=== PATIENT | female | born 1970 | race Two or more races ===

== ENCOUNTER 2018-04-14 08:23 | Emergency (ER) | payer OTHER ==
[2018-04-14 08:35] VITALS: BP 128/88; PULSE 70; TEMP 98.1; BMI 30.1
[2018-04-14] MEDS ORDERED: ONDANSETRON 4 MG/2 ML VIAL IVPUSH ONE (09:06)
[2018-04-14] MEDS ORDERED: SODIUM CHLORIDE 500 ML IV STA (09:07)
--- NOTE | 2018-04-14 09:23 | PDOC ---
History of Present Illness - General Chief Complaint: Pain, Acute Stated Complaint: ABD PAIN Time Seen by Provider: 04/14/18 09:00 Past History - Past Medical History Allergies/Adverse Reactions: Allergies Allergy/AdvReac Type Severity Reaction Status Date / Time acetaminophen Allergy Mild Rash Verified 04/14/18 08:36 [From Tylenol-Codeine] codeine phosphate Allergy Mild Rash Verified 04/14/18 08:36 [From Tylenol-Codeine] morphine Allergy Mild Vomiting Verified 04/14/18 08:36 ciprofloxacin [From Cipro] Allergy Verified 04/14/18 08:36 ciprofloxacin HCl Allergy Verified 04/14/18 08:36 [From Cipro] Penicillins Allergy Swelling Verified 04/14/18 08:36 Home Medications: Ambulatory Orders Hydrochlorothiazide [Hctz -] 12.5 mg PO DAILY 03/25/16 Olmesartan/Hydrochlorothiazide [Benicar Hct 40-12.5 mg Tablet] 12.5 mg PO DAILY 03/25/16 Omeprazole [Prilosec] 40 mg PO DAILY 03/25/16 Ketorolac Tromethamine [Toradol] 10 mg PO TID PRN #15 tablet 03/26/16 COPD: No HTN: Yes Other medical history: IBS - Surgical History Abdominal Surgery: Yes (HERNIA) Appendectomy: Yes (?) Cholecystectomy: Yes GI Surgery: Yes (GASTRIC SLEEVE SX 3 YRS AGO) - Immunization History Immunization Up to Date: Yes - Suicide/Smoking/Psychosocial Hx Smoking Status: No Smoking History: Never smoked Have you smoked in the past 12 months: No Number of Cigarettes Smoked Daily: 0 Hx Alcohol Use: No Drug/Substance Use Hx: No Substance Use Type: None *Physical Exam - Vital Signs Last Vital Signs Temp Pulse Resp BP Pulse Ox 98.1 F 70 18 128/88 100 04/14/18 08:30 04/14/18 08:30 04/14/18 08:30 04/14/18 08:30 04/14/18 08:30 Medical Decision Making - Medical Decision Making 04/14/18 09:56 Unable to locate patient in the emergency waiting area, bathroom several weeks. As per security patient was seen getting into a vehicle *DC/Admit/Observation/Transfer Diagnosis at time of Disposition: Abdominal pain - Discharge Dispostion Disposition: LEFT BEFORE [facility] - Referrals Referrals: Rober Macedo MD [Primary Care Provider] - - Patient Instructions - Post Discharge Activity
== END 2018-04-14 10:22 | disposition left against medical advice (07) ==
LOC: JER 08:23
DX: Z53.21 Procedure and treatment not carried out due to patient leaving prior to being seen by health care provider (principal)
CPT/HCPCS: 99281-25

== ENCOUNTER 2018-12-18 06:41 | Emergency (ER) | payer OTHER ==
[2018-12-18 07:13] VITALS: TEMP 98; BMI 26.5
--- NOTE | 2018-12-18 07:46 | PDOC ---
History of Present Illness - General Chief Complaint: Vomiting/Diarrhea Stated Complaint: DIARRHEA/VOMITING Time Seen by Provider: 12/18/18 07:42 History Source: Patient - History of Present Illness Timing/Duration: reports: constant, getting worse Quality: reports: moderate Past History - Past Medical History Allergies/Adverse Reactions: Allergies Allergy/AdvReac Type Severity Reaction Status Date / Time acetaminophen Allergy Mild Rash Verified 12/18/18 07:11 [From Tylenol-Codeine] codeine phosphate Allergy Mild Rash Verified 12/18/18 07:11 [From Tylenol-Codeine] morphine Allergy Mild Vomiting Verified 12/18/18 07:11 ciprofloxacin [From Cipro] Allergy Verified 12/18/18 07:11 ciprofloxacin HCl Allergy Verified 12/18/18 07:11 [From Cipro] Penicillins Allergy Swelling Verified 12/18/18 07:11 Home Medications: Ambulatory Orders Olmesartan/Hydrochlorothiazide [Benicar Hct 40-12.5 mg Tablet] 12.5 mg PO DAILY 03/25/16 Omeprazole [Prilosec] 40 mg PO DAILY 03/25/16 Ondansetron HCl [Zofran] 4 mg PO Q8H #12 tablet 12/18/18 COPD: No HTN: Yes - Surgical History Abdominal Surgery: Yes (HERNIA) Appendectomy: Yes (?) Cholecystectomy: Yes GI Surgery: Yes (GASTRIC SLEEVE SX 3 YRS AGO) - Immunization History Immunization Up to Date: Yes - Suicide/Smoking/Psychosocial Hx Smoking Status: No Smoking History: Never smoked Have you smoked in the past 12 months: No Number of Cigarettes Smoked Daily: 0 Hx Alcohol Use: No Drug/Substance Use Hx: No Substance Use Type: None Review of Systems - Review of Systems Constitutional: No: Chills, Fever ABD/GI: Yes: Diarrhea, Nausea, Poor Fluid Intake, Vomiting : No: Dysuria *Physical Exam - Vital Signs Last Vital Signs Temp Pulse Resp BP Pulse Ox 98 F 80 18 135/99 99 12/18/18 07:11 12/18/18 07:11 12/18/18 07:11 12/18/18 07:11 12/18/18 07:11 - Physical Exam General Appearance: Yes: Appropriately Dressed. No: Apparent Distress HEENT: positive: Normal Voice Neck: positive: Supple Respiratory/Chest: negative: Respiratory Distress Gastrointestinal/Abdominal: positive: Normal Bowel Sounds, Tender (to mid lower abd), Soft. negative: Distended, Guarding, Rebound Musculoskeletal: negative: CVA Tenderness Integumentary: positive: Dry, Warm Neurologic: positive: Fully Oriented, Alert, Normal Mood/Affect Moderate Sedation - Procedure Monitoring Vital Signs: Procedure Monitoring Vital Signs Temperature 98 F 12/18/18 07:11 Pulse Rate 80 12/18/18 07:11 Respiratory Rate 18 12/18/18 07:11 Blood Pressure 135/99 12/18/18 07:11 O2 Sat by Pulse Oximetry (%) 99 12/18/18 07:11 ED Treatment Course - LABORATORY CBC & Chemistry Diagram: 12/18/18 08:00 12/18/18 08:00 Medical Decision Making - Medical Decision Making 12/18/18 07:42 48-year-old female, history of IBS, endometriosis, umbilical hernia, s/p multiple abdominal surgeries including partial resection of pancreas (2/2 benign mass per pt, possible stent placement), hysterectomy, abdominal sleeve, abdominoplasty, here with nausea, vomiting, diarrhea and lower abdominal pain since yesterday. No bright red blood per rectum, fever or chills. Multiple family members with similar symptoms. No recent travel or antibiotic use See exam Possible gastroenteritis, r/o SBO Stable and in NAD w/ sig ttp to mid lower abdomen -pain control -antiemetic -IVF -labs -CT a/p w/ po contrast only as ?allergy to IV dye per pt 12/18/18 11:[address] unremarkable. UA w/ 3+ LE. No dysuria. Will hold off on abx and send ucx. Patient since improved with meds and able to porsche po. Will dc with supportive treatment for most likely viral gastroenteritis 12/18/18 11:41 *DC/Admit/Observation/Transfer Diagnosis at time of Disposition: Diarrhea Qualifiers: Diarrhea type: unspecified type Qualified Code(s): R19.7 - Diarrhea, unspecified Nausea and vomiting Qualifiers: Vomiting type: unspecified Vomiting Intractability: non-intractable Qualified Code(s): R11.2 - Nausea with vomiting, unspecified - Discharge Dispostion Disposition: HOME Condition at time of disposition: Improved - Prescriptions Prescriptions: Ondansetron HCl [Zofran] 4 mg PO Q8H #12 tablet - Referrals Referrals: Rober Macedo MD [Primary Care Provider] - - Patient Instructions Printed Discharge Instructions: Viral Gastroenteritis Additional Instructions: Your labs and CAT scan were here. Please rest, drink plenty of fluids and take Tylenol as needed for pain. We also sent prescription for Zofran. Please take as needed for nausea - Post Discharge Activity
[2018-12-18] MEDS ORDERED: ONDANSETRON 4 MG/2 ML VIAL IVPUSH ONE (07:48)
[2018-12-18] MEDS ORDERED: SODIUM CHLORIDE 1,000 ML IV STA (07:48)
[2018-12-18] MEDS ORDERED: ACETAMINOPHEN 1000 MG/100 ML VIAL (NON FORMULARY) IVPB ONE (07:49)
[2018-12-18] MEDS ORDERED: ONDANSETRON 4 MG/2 ML VIAL ONE (08:15)
[2018-12-18] MEDS ORDERED: ACETAMINOPHEN INJECTION 100 ML IVPB ONE (08:15)
--- NOTE | 2018-12-18 08:24 | PDOC ---
*Physical Exam - Vital Signs Last Vital Signs Temp Pulse Resp BP Pulse Ox 98 F 80 18 135/99 99 12/18/18 07:11 12/18/18 07:11 12/18/18 07:11 12/18/18 07:11 12/18/18 07:11 ED Treatment Course - LABORATORY CBC & Chemistry Diagram: 12/18/18 08:00 12/18/18 08:00 Medical Decision Making - Medical Decision Making 12/18/18 08:24 Pt seen by the Advanced Practice Provider under my direct supervision Ancillary studies reviewed I agree with plan as outlined by the Advanced Practice Provider FERMIN Peoples *DC/Admit/Observation/Transfer - Referrals Referrals: Rober Macedo MD [Primary Care Provider] - - Patient Instructions - Post Discharge Activity
[2018-12-18 08:40] LABS: BASO % 0.5 % (0-2.0); EOS % 1.8 % (0-4.5); HEMATOCRIT 43.3 % (32.4-45.2); HEMOGLOBIN 14.6 GM/dL (10.7-15.3); LYMPH % 20.1 % (8-40); MCH 27.9 pg (25.7-33.7); MCHC 33.6 g/dl (32.0-36.0); MEAN CELL VOLUME 83.1 fl (80-96); MEAN PLT VOLUME 8.8 fl (7.5-11.1); MONO % 4.5 % (3.8-10.2); NEUT % 73.1 % (42.8-82.8); PLATELET COUNT 274 K/MM3 (134-434); RBC 5.21 M/mm3 (3.60-5.2); RDW 14.6 % (11.6-15.6); WHITE BLOOD COUNT 6.5 K/mm3 (4.0-10.0)
[2018-12-18 09:01] LABS: URINE APPEARANCE SLCLOUDY; URINE BILIRUBIN NEGATIVE (<2.0 mg/dL); URINE COLOR YELLOW; URINE GLUCOSE (UA) NEGATIVE (NEGATIVE); URINE KETONE NEGATIVE (NEGATIVE); URINE LEUK ESTERASE 3+ (NEGATIVE); URINE NITRITE NEGATIVE (NEGATIVE); URINE PROTEIN NEGATIVE (NEGATIVE); URINE UROBILINOGEN NEGATIVE mg/dL (0.2-1.0)
[2018-12-18 09:06] LABS: ALBUMIN 4.1 g/dl (3.4-5.0); ALK PHOS 74 U/L (45-117); ANION GAP 8 MMOL/L (8-16); BILIRUBIN,TOTAL 0.4 mg/dL (0.2-1); BLOOD UREA NITROGEN 12 mg/dL (7-18); CALCIUM 9.2 mg/dL (8.5-10.1); CHLORIDE 107 mmol/L (98-107); CO2 26 mmol/L (21-32); CREATININE 0.6 mg/dL (0.55-1.3); GLUCOSE,RANDOM 118 mg/dL (74-106); LIPASE 88 U/L (73-393); POTASSIUM 4.3 mmol/L (3.5-5.1); SGOT/AST 23 U/L (15-37); SGPT/ALT 33 U/L (13-61); SODIUM 142 mmol/L (136-145); TOT PROT 7.8 g/dl (6.4-8.2)
[2018-12-18 10:31] LABS: EPI CELLS FEW /HPF (FEW); URINE BACTERIA RARE /hpf (NONE SEEN); URINE MUCUS MANY
[2018-12-18] MEDS ORDERED: KETOROLAC TROMETHAMINE 30 MG/1 ML VIAL IVPUSH ONE (11:21)
[2018-12-18] MEDS ORDERED: KETOROLAC TROMETHAMINE 30 MG/1 ML VIAL ONE (11:30)
[2018-12-18 11:54] VITALS: BP 135/77; PULSE 78
== END 2018-12-18 11:57 | disposition home or self-care (01) ==
LOC: JER 06:41
PROC: 3E0333Z Introduction of Anti-inflammatory into Peripheral Vein, Percutaneous Approach (ICD-10-PCS; principal; 2018-12-18)
DX: A08.4 Viral intestinal infection, unspecified (principal); B97.89 Other viral agents as the cause of diseases classified elsewhere; Z87.19 Personal history of other diseases of the digestive system; Z90.49 Acquired absence of other specified parts of digestive tract
CPT/HCPCS: 36415; 74176-TC; 80053; 81003; 81015; 83690; 84703; 85025; 86850; 86900; 86901; 87086; 96374; 99283-25; J0131; J7030; Q9967

== ENCOUNTER 2021-06-06 10:59 | Emergency (ER) | payer OTHER ==
[2021-06-06 11:31] VITALS: BMI 29.5
[2021-06-06] MEDS ORDERED: SODIUM CHLORIDE 0.9% 1000 ML INFUS.BAG IV ONE ×2 (12:07→15:40)
[2021-06-06 12:54] LABS: HEMATOCRIT 39.4 % (32.4-45.2); HEMOGLOBIN 13.2 GM/dL (10.7-15.3); MCH 27.5 pg (25.7-33.7); MCHC 33.4 g/dl (32.0-36.0); MEAN CELL VOLUME 82.3 fl (80-96); MEAN PLT VOLUME 9.7 fl (7.5-11.1); PLATELET COUNT 279 10^3/uL (134-434); RBC 4.78 M/mm3 (3.60-5.2); RDW 15.4 % (11.6-15.6); WHITE BLOOD COUNT 16.9 K/mm3 (4.0-10.0)
[2021-06-06 12:57] LABS: INR 1.08 (0.83-1.09); PROTHROMBIN TIME (PATIENT) 13.3 SEC (9.7-13.0)
[2021-06-06 13:00] LABS: ACTIVATED PTT 26.9 SECONDS (25.2-36.5)
[2021-06-06 14:17] LABS: ANISOCYTOSIS 0; MACROCYTOSIS 0; PLATELET ESTIMATE NORMAL
[2021-06-06 14:44] LABS: CALCIUM 7.8 mg/dL (8.5-10.1)
[2021-06-06 14:46] LABS: ALBUMIN 3.2 g/dl (3.4-5.0); BLOOD UREA NITROGEN 8.1 mg/dL (7-18)
[2021-06-06 14:49] LABS: CREATININE 0.6 mg/dL (0.55-1.3)
[2021-06-06 14:50] LABS: BILIRUBIN,TOTAL 1.4 mg/dL (0.2-1)
[2021-06-06 14:54] LABS: TOT PROT 6.1 g/dl (6.4-8.2)
[2021-06-06 16:27] VITALS: BP 122/79; PULSE 92; TEMP 98.9
== END 2021-06-06 16:29 | disposition home or self-care (01) ==
LOC: JER 10:59
DX: S31.41XA Laceration without foreign body of vagina and vulva, initial encounter (principal); Y99.8 Other external cause status
CPT/HCPCS: 36415; 80053; 85025; 85610; 85730; 86850; 86900; 86901; 93005; 93010; 99284-25

== ENCOUNTER 2023-04-06 13:20 | Emergency (ER) | payer OTHER ==
[2023-04-06 13:28] VITALS: BP 142/84; PULSE 78; RESP 18; TEMP 98.3; BMI 27.8
== END 2023-04-06 15:56 | disposition home or self-care (01) ==
LOC: FER 13:20
PROC: 2W3QX1Z Immobilization of Right Lower Leg using Splint (ICD-10-PCS; principal; 2023-04-06)
DX: M25.571 Pain in right ankle and joints of right foot (principal); R22.41 Localized swelling, mass and lump, right lower limb; W18.42XA Slipping, tripping and stumbling without falling due to stepping into hole or opening, initial encounter
CPT/HCPCS: 73610-TC-RT-FY; 73630-TC-RT-FY; 99283-25

== ENCOUNTER 2023-11-10 11:55 | Emergency (ER) | payer OTHER ==
[2023-11-10 12:19] VITALS: PULSE 89; TEMP 98.1; BMI 27.4
[2023-11-10 12:32] VITALS: BP 137/90; RESP 18
== END 2023-11-10 12:55 | disposition home or self-care (01) ==
LOC: FER 11:55
DX: R21 Rash and other nonspecific skin eruption (principal); M54.9 Dorsalgia, unspecified; B02.9 Zoster without complications
CPT/HCPCS: 99283-25